=== PATIENT | male | born 1940 | race Caucasian/White ===

== ENCOUNTER 2022-10-12 15:06 | Emergency (ER) | payer MEDICARE, OTHER ==
[2022-10-12] MEDS ORDERED: Metoprolol Tartrate 5 MG/5 ML VIAL ONE ×2 (15:24→16:06)
[2022-10-12 15:37] LABS: #Basophils 0.1 10x3/uL (0.0-0.2); #Eosinphils 0.2 10x3/uL (0.0-0.5); #Monocytes 1.1 10x3/uL (0.0-1.1); #Neutrophils 7.6 10x3/uL (1.5-8.4); %Basophils 0.7 % (0.0-2.0); %Eosinophils 1.8 % (0.0-6.0); %Lymphocytes 15.2 % (18.0-47.0); %Monocytes 10.5 % (0.0-10.0); %Neutrophils 71.4 % (40.0-75.0); Hematocrit 41.6 % (38.8-50.0); Hemoglobin 14.3 g/dL (13.5-17.5); Mean Corpuscular HGB CONC 34.4 g/dL (32.0-36.0); Mean Corpuscular Hemoglobin 31.6 pg (27.0-33.0); Mean Corpuscular Volume 91.8 fl (81.2-95.1); Mean Platelet Volume 9.5 fl (7.4-10.4); Platelet Count 198 10x3/uL (150-450); RBC Distribution Width 12.7 % (11.5-14.5); Red Blood Cell (RBC) Count 4.53 10x6/uL (4.32-5.72); White Blood Cell (WBC) Count 10.6 10x3/uL (3.5-10.5)
[2022-10-12 15:45] LABS: INR-International Normal Ratio 1.1; PTT 31.1 sec (22.0-33.0); Prothrombin Time 11.6 sec (9.5-12.1)
[2022-10-12 16:06] LABS: Troponin I Less than 0.010 ng/mL (< 0.028)
[2022-10-12 17:04] LABS: ALT (SGPT) 38 U/L (8-55); AST (SGOT) 54 U/L (5-34); Albumin 3.9 g/dL (3.4-4.8); Alkaline Phosphatase 100 U/L (40-110); Anion Gap 17 mmol/L (10-20); BUN (Urea Nitrogen) 26 mg/dL (8.4-25.7); Bilirubin, Total 0.5 mg/dL (0.2-1.2); Calc. Creatinine Clearance 0 mL/min (70-130); Carbon Dioxide 22 mmol/L (23-31); Chloride 103 mmol/L (98-107); Estimated GFR 78; Globulin 2.7 g/dL (2.4-3.5); Glucose 99 mg/dL (83-110); Protein, Total 6.6 g/dL (5.8-8.1); Sodium 138 mmol/L (136-145)
== END 2022-10-12 17:35 | disposition home or self-care (01) ==
LOC: CSHERS 15:06
DX: I48.91 Unspecified atrial fibrillation (principal); Z79.01 Long term (current) use of anticoagulants; Z79.899 Other long term (current) drug therapy
CPT/HCPCS: 83735; 84484; 93005; 93010; 96361; 96374; 96376